=== PATIENT | male | born 1945 | race Two or more races ===

== ENCOUNTER → 2019-04-09 11:06 | Outpatient (CLI) | payer OTHER | END | disposition home or self-care (01) | LOC: LAB 11:06 | DX: N30.00 Acute cystitis without hematuria (principal) ==

== ENCOUNTER → 2019-06-19 | Outpatient (CLI) | payer OTHER | END | disposition home or self-care (01) | LOC: TOM 09:37 | DX: R97.20 Elevated prostate specific antigen [PSA] (principal); R31.21 Asymptomatic microscopic hematuria; N40.1 Benign prostatic hyperplasia with lower urinary tract symptoms ==

== ENCOUNTER 2020-03-07 08:53 | Outpatient (CLI) | payer OTHER | END 2020-03-07 08:58 | disposition home or self-care (01) | LOC: LAB 08:53 | PROVIDERS: ATTEND Urology | DX: R97.20 Elevated prostate specific antigen [PSA] (principal) ==

== ENCOUNTER 2020-03-28 07:08 | Outpatient (CLI) | payer OTHER | END 2020-03-28 07:11 | disposition home or self-care (01) | LOC: SONOGRAMA 07:08 | PROVIDERS: ATTEND Urology | DX: R97.20 Elevated prostate specific antigen [PSA] (principal) ==

== ENCOUNTER 2025-04-23 09:36 | Outpatient (CLI) | payer OTHER | END 2025-04-23 09:43 | disposition home or self-care (01) | LOC: LAB 09:36 | PROVIDERS: ATTEND Urology | DX: R97.20 Elevated prostate specific antigen [PSA] (principal) ==

== ENCOUNTER 2025-06-04 07:30 | Outpatient (CLI) | payer OTHER | END 2025-06-04 07:32 | disposition home or self-care (01) | LOC: SONOGRAMA 07:30 | PROVIDERS: ATTEND Urology | DX: C61 Malignant neoplasm of prostate (principal); R97.20 Elevated prostate specific antigen [PSA] ==